=== PATIENT | male | born 1975 | race Caucasian/White ===

== ENCOUNTER 2020-03-23 09:34 | Outpatient (CLI) | payer BC, SELFPAY ==
--- NOTE | 2020-03-23 11:30 | NEURO_ITS ---
Patient Number: [id number] Impression: # Complains of numbness of hands. # Bilateral sensory more than motor Carpal Tunnel Syndrome. # No ulnar neuropathy. # Normal needle/EMG exam. # Clinical correlation recommended. Nerve Conduction Studies Anti Sensory Summary Table Stim Site NR Peak (ms) P-T Amp (?V) Site1 Site2 Delta-P (ms) Dist (cm) Bo (m/s) Left Median Anti Sensory (2-3nd Digit) Wrist 3.6 49.1 Wrist 2-3nd Digit 3.6 14.0 39 Wrist 3.7 36.3 Wrist 2-3nd Digit 3.6 14.0 39 Right Median Anti Sensory (2-3nd Digit) Wrist 4.4 47.1 Wrist 2-3nd Digit 4.4 14.0 32 Wrist 5.0 1.0 Wrist 2-3nd Digit 4.4 14.0 32 Left Radial Anti Sensory (Base 1st Digit) Wrist 1.6 32.2 Wrist Base 1st Digit 1.6 0.0 Right Radial Anti Sensory (Base 1st Digit) Wrist 1.8 25.2 Wrist Base 1st Digit 1.8 0.0 Left Ulnar Anti Sensory (5th Digit) Wrist 2.7 29.8 Wrist 5th Digit 2.7 14.0 52 Right Ulnar Anti Sensory (5th Digit) Wrist 2.4 38.9 Wrist 5th Digit 2.4 14.0 58 Motor Summary Table Stim Site NR Onset (ms) O-P Amp (mV) Site1 Site2 Delta-0 (ms) Dist (cm) Bo (m/s) Left Median Motor (Abd Poll Brev) Wrist 3.6 3.9 Elbow Wrist 5.5 30.0 55 Elbow 9.1 3.7 Right Median Motor (Abd Poll Brev) Wrist 3.7 1.3 Elbow Wrist 5.1 30.0 59 Elbow 8.8 1.5 Left Ulnar Motor (Abd Dig Minimi) Wrist 2.8 6.7 A Elbow Wrist 5.2 31.0 60 A Elbow 8.0 6.1 Right Ulnar Motor (Abd Dig Minimi) Wrist 2.5 6.8 A Elbow Wrist 4.8 30.0 63 A Elbow 7.3 5.8 F Wave Studies NR F-Lat (ms) L-R F-Lat (ms) Left Median (Mrkrs) (Abd Poll Brev) 28.87 0.00 Right Median (Mrkrs) (Abd Poll Brev) 28.87 0.00 Left Ulnar (Mrkrs) (Abd Dig Min) 28.05 0.47 Right Ulnar (Mrkrs) (Abd Dig Min) 27.58 0.47 EMG Side Muscle Nerve Root Ins Act Fibs Amp Dur Recrt Comment Right 1stDorInt Ulnar C8-T1 Nml Nml Nml Nml Nml Right Ext Indicis Radial (Post Int) C7-8 Nml Nml Nml Nml Nml Right Ext Digitorum Radial (Post Int) C7-8 Nml Nml Nml Nml Nml Right BrachioRad Radial C5-6 Nml Nml Nml Nml Nml Right PronatorTeres Median C6-7 Nml Nml Nml Nml Nml Right Abd Poll Brev Median C8-T1 Nml Nml Nml Nml Nml Left 1stDorInt Ulnar C8-T1 Nml Nml Nml Nml Nml Left Ext Indicis Radial (Post Int) C7-8 Nml Nml Nml Nml Nml Left Ext Digitorum Radial (Post Int) C7-8 Nml Nml Nml Nml Nml Left BrachioRad Radial C5-6 Nml Nml Nml Nml Nml Left PronatorTeres Median C6-7 Nml Nml Nml Nml Nml Left Abd Poll Brev Median C8-T1 Nml Nml Nml Nml Nml Right ABD Dig Min Ulnar C8-T1 Nml Nml Nml Nml Nml Left ABD Dig Min Ulnar C8-T1 Nml Nml Nml Nml Nml MTDD
== END 2020-03-23 09:35 | disposition home or self-care (01) ==
LOC: ANHNEURO 09:36
PROVIDERS: PCP Internal Medicine; Visit Provider Orthopaedic Surgery
DX: G56.03 Carpal tunnel syndrome, bilateral upper limbs (principal)
CPT/HCPCS: 95886; 95911

== ENCOUNTER 2021-01-19 07:59 | Outpatient (CLI) | payer BC, SELFPAY ==
--- NOTE | ~2021-01-19 | CT_ITS ---
EXAMINATION: CT IAC/mastoids BI wo con EXAM DATE: 01/19/2021 08:31 INDICATION: Bilateral eustachian tube dysfunction. Hearing loss entire life. Ear surgeries 15 years a go. Scar tissue. TECHNIQUE: Spiral CT of the internal auditory canals was performed without contrast. Axial and franck nal images were reviewed. The dose-length product (DLP) for this examination was 256.75 mGy-cm. The exposure was tailored according to patient size, and iterative reconstruction (ASIR) was used as add itional dose reduction technique. There is no prior study for comparison. FINDINGS: Internal auditory canals are symmetric. The expected courses of the eustachian tubes symmet jerry, no evidence of mass or other abnormality in the region. Please note these are typically collapse d at imaging and not specifically evaluated for patency. RIGHT side: The middle ear is well aerated. The mastoid air cells are well aerated. The seventh aircraft line assembler nial nerve has a normal course. The scutum is intact. The ossicles are normal in appearance. Small portions of the tegmen tympani have wall that is imperceptible. The cochlea and semicircular canals are normal in appearance. Internal auditory canal is normal in appearance and symmetric compared to contralateral side. LEFT side: The middle ear is well aerated. The mastoid air cells are well aerated. The seventh cran ial nerve has a normal course. The scutum is intact. The ossicles are normal in appearance. Small portions of the tegmen tympani have wall that is imperceptible. The cochlea and semicircular canals are normal in appearance. Internal auditory canal is normal in appearance and symmetric compared to contralateral side. IMPRESSION: Unremarkable CT IAC exam. Reviewed, dictated and finalized at location B. IMPRESSION: Unremarkable CT IAC exam.
== END 2021-01-19 08:00 | disposition home or self-care (01) ==
PROVIDERS: PCP Internal Medicine; Visit Provider Otolaryngology
DX: H69.82 Other specified disorders of Eustachian tube, left ear (principal)
CPT/HCPCS: 70480

== ENCOUNTER 2022-06-07 08:21 | Outpatient (CLI) | payer BC, SELFPAY ==
--- NOTE | ~2022-06-07 | CT_ITS ---
EXAMINATION: CT abdomen w con INDICATION: Right flank pain TECHNIQUE: Computed tomographic images of the abdomen were obtained after the administration of 100 c c of Omnipaque 350 intravenous contrast. The dose-length product (DLP) was 814.56 mGy-cm. Automated e xposure control and iterative reconstruction technique were employed. COMPARISON: None available FINDINGS: The lung bases are clear. The heart size is normal. The liver, spleen, pancreas, and right adrenal gland are normal. A 5 mm mass of the left adrenal gland is too small to characterize but like ly reflects an adenoma. There is a 5 mm stone in the distal common bile duct. The enlarged common lee e duct measures up to 11 mm. There is mild mucosal enhancement of the common bile duct. Stones are pr esent in the nondistended gallbladder. There is mild wall thickening of the gallbladder. There are no pathologically enlarged abdominal lymph nodes. The left kidney is unremarkable. There is a 1.[address] of the right kidney. There is no free intraperitoneal gas or evidence of bowel obstruction. IMPRESSION: 1. Choledocholithiasis with dilated common bile duct. Mild mucosal enhancement of the common bile reina t could reflect cholangitis. Wall thickening of the gallbladder is likely due to choledocholithiasis. These findings were discussed with Dr. Nura Nicolas MD at 1055 hours on 06/07/2022. Reviewed, dictated and finalized at location A. IMPRESSION: 1. Choledocholithiasis with dilated common bile duct. Mild mucosal enhancement of the common bile duct could reflect cholangitis. Wall thickening of the gallb ladder is likely due to choledocholithiasis. These findings were discussed with Dr. Nura Nicolas MD at 1055 hours on 06/07/2022.
== END 2022-06-07 08:22 | disposition home or self-care (01) ==
PROVIDERS: PCP Internal Medicine; Visit Provider Internal Medicine
DX: R10.9 Unspecified abdominal pain (principal); K80.20 Calculus of gallbladder without cholecystitis without obstruction
CPT/HCPCS: 74160; Q9967

== ENCOUNTER 2022-06-08 13:02 | Observation (INO) | payer BC, SELFPAY ==
--- NOTE | ~2022-06-08 | XR_ITS ---
EXAMINATION: XR ERCP DATE: 06/09/2022 13:02 INDICATION: Choledocholithiasis. TECHNIQUE: 2 spot fluoroscopic images of the right upper quadrant were obtained during endoscopic ret rograde cholangiopancreatography (ERCP). Fluoroscopy exposure time was 173 seconds. COMPARISON: CT abdomen 06/07/2022 FINDINGS: The endoscope is in the second portion of the duodenum. There is opacification of the commo n duct with a stone identified. IMPRESSION: 1. Choledocholithiasis. Please refer to the ERCP procedure note for additional details. Reviewed, dictated and finalized at location A.
[2022-06-08 13:05] VITALS: BP 136/84; PULSE 91; RESP 20; TEMP 37; O2SAT 98
--- NOTE | 2022-06-08 14:08 | ED.ABDPAIN ---
HPI - Abdominal Pain General Chief Complaint: Abdominal Pain Stated Complaint: abd pain Time Seen by Provider: 06/08/22 13:29 History of Present Illness HPI narrative: 46-year-old male presents emergency room for evaluation of abnormal lab work and right upper quadrant abdominal pain. Patient states he was seen at his primary care physician's office yesterday and had lab work and a CT scan of his abdomen. CT scan shows choledocholithiasis. Lab work showed elevated lipase and bilirubin levels. Patient was encouraged by his PCP to come here for further evaluation and surgical consultation Related Data Allergies Allergy/AdvReac Type Severity Reaction Status Date / Time No Known Allergies Allergy Verified 06/08/22 14:19 Review of Systems Review of Systems: CONSTITUTIONAL: Denies fever, chills, or sweats. EYES: Denies visual changes, redness, or discharge. ENT: Denies rhinorrhea, congestion, sore throat, or otalgia. CARDIOVASCULAR: Denies chest pain, palpitations, or edema. RESPIRATORY: Denies cough or dyspnea. GASTROINTESTINAL: Reports right upper quadrant pain GENITOURINARY: Denies dysuria or hematuria. SKIN: Denies rash or itching. MUSCULOSKELETAL: Denies back pain, joint pain, or myalgia. NEUROLOGIC: Denies headache, numbness, dizziness, or weakness. PSYCHIATRIC: Denies anxiety or depression. Exam Narrative: GENERAL: Well-appearing, well-nourished, no physical limitations, and in no acute distress. HEAD: Normocephalic, atraumatic. EYES: Conjunctivae jaundiced, PERRLA and EOMI. CHEST: Clear to auscultation. No respiratory distress. No wheezes rales or rhonchi. No tenderness. HEART: Regular rate and rhythm. No murmur heard. Normal peripheral pulses. ABDOMEN: Soft, nontender, nondistended, normal active bowel sounds. EXTREMITIES: Normal range of motion. No edema. No clubbing or cyanosis SKIN: Warm, dry, no rash. Jaundiced NEURO: No focal deficits. Alert and oriented x3. MAEW. CN's II-XI intact bilaterally, normal gait PSYCH: Cooperative. Normal mood and affect. Course Vital Signs Vital signs: Vital Signs Temperature 37.0 C 06/08/22 13:05 Pulse Rate 91 06/08/22 13:05 Respiratory Rate 20 06/08/22 13:05 Blood Pressure 136/84 06/08/22 13:05 Pulse Oximetry 98 06/08/22 13:05 Oxygen Delivery Room Air 06/08/22 13:05 Temperature 37.0 C 06/08/22 13:05 Pulse Rate 91 06/08/22 13:05 Respiratory Rate 20 06/08/22 13:05 Blood Pressure 136/84 06/08/22 13:05 Pulse Oximetry 98 06/08/22 13:05 Oxygen Delivery Room Air 06/08/22 13:05 MDM - Abdominal Pain Lab Data Result diagrams: 06/08/22 14:15 06/08/22 14:15 Labs: Lab Results 06/08/22 06/08/22 06/08/22 Range/Units 14:15 14:15 14:15 WBC 9.0 (4.5-10.0) K/mm3 RBC 5.66 (4.6-6.20) M/mm3 Hgb 16.1 (14.0-18.0) g/dL Hct 47.8 (42.0-52.0) % MCV 84.5 (80-100) fl MCH 28.4 (26-34) pg MCHC 33.7 (32-36) g/dl RDW 15.1 H (11.5-14.5) % Plt Count 161 (150-375) k/mm3 MPV 9.3 (7.4-10.4) fl Immature Gran % (Auto) 0.4 (0-0.5) % Neut % (Auto) 79.2 H (45.5-73.1) % Lymph % (Auto) 10.6 L (18.3-44.2) % [place] % (Auto) 8.8 H (2.6-8.5) % Eos % (Auto) 0.2 (0-4.4) % Baso % (Auto) 0.8 (0.2-1.2) % Lymph # (Auto) 0.96 (0.9-3.2) K/mm3 [place] # (Auto) 0.8 H (0.1-0.6) K/mm3 Eos # (Auto) 0.0 (0-0.3) K/mm3 Baso # (Auto) 0.1 (0.0-0.1) K/mm3 Abs Immat Gran (auto) 0.04 H (0.00-0.031) K/mm3 Absolute Neuts (auto) 7.2 H (1.3-6.7) K/mm3 Absolute Nucleated RBC 0.0 (0.0-0.012) K/mm3 Nucleated RBC % 0.0 (0.0-0.2) % PT 13.3 (11.1-14.7) Seconds INR 1.1 APTT 28.8 (22.3-36.8) SECONDS Sodium 137 (137-145) mmol/L Potassium 4.2 (3.4-5.0) mmol/L Chloride 101 (98-107) mmol/L Carbon Dioxide 21 L (22-30) mmol/L Anion Gap 15 (8-16) mmol/L BUN 23 H (9-20) mg/dL Creatinine 1.30 (0.7-1.3) mg/
[2022-06-08 14:20] LABS: Basophils Absolute Auto 0.1 K/mm3 (0.0-0.1); Basophils Percent Auto 0.8 % (0.2-1.2); Eosinophils Percent Auto 0.2 % (0-4.4); Hematocrit 47.8 % (42.0-52.0); Hemoglobin 16.1 g/dL (14.0-18.0); Immature Granulocyte Absolute 0.04 K/mm3 (0.00-0.031); Immature Granulocyte Percent A 0.4 % (0-0.5); Lymphocytes Absolute Auto 0.96 K/mm3 (0.9-3.2); Lymphocytes Percent Auto 10.6 % (18.3-44.2); Mean Corpuscular HGB Conc 33.7 g/dl (32-36); Mean Corpuscular Hemoglobin 28.4 pg (26-34); Mean Corpuscular Volume 84.5 fl (80-100); Mean Platelet Volume 9.3 fl (7.4-10.4); Monocytes Absolute Auto 0.8 K/mm3 (0.1-0.6); Monocytes Percent Auto 8.8 % (2.6-8.5); Neutrophils Absolute Auto 7.2 K/mm3 (1.3-6.7); Neutrophils Percent Auto 79.2 % (45.5-73.1); Platelet Count Result 161 k/mm3 (150-375); Red Blood Count 5.66 M/mm3 (4.6-6.20); Red Cell Distribution Width 15.1 % (11.5-14.5)
[2022-06-08] MEDS: LACTATED RINGERS 1,000 ML 150 ML IV CONT (14:28)
[2022-06-08 14:31] LABS: Alanine Aminotransferase 231 U/L (6-50); Albumin Level 4.4 g/dL (3.5-5.1); Alkaline Phosphatase 208 U/L (38-126); Anion Gap 15 mmol/L (8-16); Aspartate Amino Transferase 100 U/L (17-59); Bilirubin,Total 11.5 mg/dL (0.2-1.3); Blood Urea Nitrogen 23 mg/dL (9-20); Calcium 8.4 mg/dL (8.4-10.2); Carbon Dioxide 21 mmol/L (22-30); Chloride 101 mmol/L (98-107); Estimated CRCL calculation 72 ml/min; Estimated Glomerular Filt Rate 60; Glucose 107 mg/dL (65-110); Lipase 188 U/L (23-300); Potassium 4.2 mmol/L (3.4-5.0); Sodium 137 mmol/L (137-145)
[2022-06-08 14:35] LABS: INR 1.1; Prothrombin Time 13.3 Seconds (11.1-14.7)
[2022-06-08 14:36] LABS: Partial Thromboplastin Time 28.8 SECONDS (22.3-36.8)
[2022-06-08 15:09] LABS: Add Urine Microscopic? YES; Appearance Urine Cloudy (Clear); Bilirubin Urine 1+ (Negative); Blood Urine Negative (Negative); Color Urine Amber (Yellow); Glucose Urine UA Negative (Negative); Ketones Urine Negative (Negative); Leukocyte Esterase Ur Negative LEU/UL (Negative); Mucus Urine Rare /lpf; Nitrate Urine Negative (Negative); Protein Urine 1+ mg/dL (Negative); Specific Grav Ur 1.025 (1.001-1.035)
--- NOTE | 2022-06-08 16:01 | WPDGICN ---
Assessment and Plan Assessment and plan (1) Cholelithiasis: Code(s): K80.20 - Calculus of gallbladder without cholecystitis without obstruction Status: Acute Assessment and Plan: Patient with symptomatic cholelithiasis. Some of his symptoms likely related to common bile duct gallstone. CT scan performed at [facility] yesterday confirms the common bile duct gallstone. He also has gallstones within the gallbladder. Plan for ERCP in the morning. Cover with broad-spectrum antibiotics. Surgical follow-up for a ventral cholecystectomy advised. (2) Choledocholithiasis: Code(s): K80.50 - Calculus of bile duct without cholangitis or cholecystitis without obstruction Status: Acute Assessment and Plan: CT scan suggests common bile duct gallstone. Plan for ERCP in the morning. Surgical follow-up is advised for a ventral cholecystectomy. GI Consult Note Consult date/time: 06/08/22 16:01 Reason for consult: elevated LFTs, right upper quadrant pain HPI: Nicohlas Amaro is a 46 year old male I am asked to see at the request of the emergency room. Patient reports he has had right upper quadrant abdominal pain for the last 3 weeks. He has been followed by his primary care doctor. Out patient LFTs were obtained and found to have significantly elevated transaminases and bilirubin. Patient underwent a CT scan yesterday which suggested gallstones but also a common bile duct gallstone. For this reason he was sent to the emergency room. Patient was admitted the hospital. Patient denies any out now fever but the states he she be he felt warm last evening when she has time good night. Patient has had a relatively poor appetite. Denies any significant weight loss. Past medical history is significant for thyroid cancer status post thyroidectomy is currently on thyroid replacement. He also has a history of syncope in the past a pacemaker was placed many years ago. He states the syncopal episode stopped after removal of the thyroid mass. Pacemaker is present but has not been used. Review of Systems Review of Systems: review of systems noncontributory. Meds Home Medications and Allergies Allergies Allergy/AdvReac Type Severity Reaction Status Date / Time No Known Allergies Allergy Verified 06/08/22 14:19 Vital Signs Vital Signs - 24 hr 06/08/22 13:05 Temperature 98.6 F Pulse Rate 91 Respiratory Rate 20 Blood Pressure 136/84 Pulse Oximetry 98 Oxygen Delivery Room Air Exam Narrative: Physical exam reveals patient to be alert. Vital signs stable. HEENT exam Reveals some scleral icterus. Lungs are clear to auscultation and percussion. Heart is without murmur or extra sounds. Abdominal exam bowel sounds are present soft nontender with no organomegaly. Digital rectal exam unremarkable. Results Labs CBC & Chem 7: 06/08/22 14:15 06/08/22 14:15 Labs: Short CBC 06/08/22 Range/Units 14:15 WBC 9.0 (4.5-10.0) K/mm3 Hgb 16.1 (14.0-18.0) g/dL Hct 47.8 (42.0-52.0) % Plt Count 161 (150-375) k/mm3 BMP 06/08/22 14:15 Sodium 137 Potassium 4.2 Chloride 101 Carbon Dioxide 21 L BUN 23 H Creatinine 1.30 Glucose 107 Calcium 8.4 Liver Function 06/08/22 Range/Units 14:15 Total Bilirubin 11.5 H (0.2-1.3) mg/dL AST 100 H (17-59) U/L ALT 231 H (6-50) U/L Alkaline Phosphatase 208 H (38-126) U/L Albumin 4.4 (3.5-5.1) g/dL Urine 06/08/22 Range/Units 14:56 Urine Color [place] (Yellow) Urine Appearance Cloudy H (Clear) Urine pH 5.0 (5.0-9.0) Ur Specific [place] 1.025 (1.001-1.035) Urine Protein 1+ H (Negative) mg/dL Urine Glucose (UA) Negative (Negative) mg/dL [facility] Consult Billing Inpatient Consult [id number] Consult Moderate
[2022-06-08 16:30] LABS: Bilirubin Direct 5.1 mg/dL (0-0.3); Bilirubin Indirect 1.9 mg/dL (0-1.1); Bilirubin,Total 10.6 mg/dL (0.2-1.3)
[2022-06-08 16:51] VITALS: BP 137/78; PULSE 72; RESP 20; O2SAT 97
--- NOTE | 2022-06-08 16:53 | PM.IMHP ---
H&P: HPI History of Present Illness Date/Time: 06/08/22 16:53 Chief Complaint: Abdominal pain Narrative: this is a 46 year year old male patient who was supposed to have a right carpal tunnel today and they noticed that he was jaundiced. The patient came to the emergency room to be worked up for right upper quadrant pain and the jaundice. The patient stated that he was seen in his primary care office yesterday and his lab work and CT of the abdomen were performed. The CT scan shows choledocholithiasis.? GI has been asked to consult. Patient's total bilirubin is 10.6 today it was 11.5 earlier today. Direct bilirubin 5.1. Indirect bilirubin 1.9. AST is 100, ALT is 231, and alkaline phosphatase is 208. GI has already seen the patient and made a notation. The patient is being admitted to observation status on the date of service of 06/08/2022. Review of Systems Review of Systems: See HPI All systems reviewed & are unremarkable except as noted in HPI and below Constitutional: Constitutional: Reports as per HPI and Reports no additional constitutional complaints Eyes: Eyes: Reports as per HPI and Reports no additional eye complaints ENT: Reports system reviewed and no additional complaints, except as documented and Reports Normal hearing present Cardiovascular: Cardiovascular: Reports no additional cardiovascular complaints Respiratory: Respiratory: Reports no additional respiratory complaints and Reports no additional respiratory complaints Gastrointestinal: Gastrointestinal: Reports as per HPI and Reports no additional gastrointestinal complaints Musculoskeletal: Musculoskeletal: Reports no additional musculoskeletal complaints Integumentary/Breasts: Skin/Breast: Reports system reviewed and no additional complaints, except as docu and Reports as per HPI Neurologic: Reports system reviewed and no additional complaints, except as documented, Reports as per HPI and Reports Normal hearing present Psychiatric: Psychiatric: Reports no additional psychiatric complaints and Reports as per HPI Endocrine: Endocrine: Reports no additional endocrine complaints Hematologic/Lymphatic: Hematologic/Lymphatic: Reports no additional hematologic/lymphatic complaints Allergic/Immunologic: Allergic/Immunologic: Reports no additional allergic/immunologic complaints [facility] Past Medical History Medical History Hypothyroidism Pacemaker Sick sinus syndrome Syncope Thyroid cancer Surgical History Surgical History H/O thyroidectomy History of carpal tunnel release S/P cubital tunnel release S/P tonsillectomy and adenoidectomy Family History Family History Mother Unknown family medical history Social History Social History (Updated 06/08/22 @ 19:03 by Raquel Child NP) Social History: the patient is and has 3 children. 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 The patient states that he is a nonsmoker. He rarely drinks. He denies any marijuana or other illicit drugs. 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 Code status full code. Smoking status: Never smoker Meds Home Medications and Allergies Home Medications Medication Instructions Recorded Confirmed Type levothyroxine 200 mcg tablet 200 mcg PO DAILY 06/08/22 06/08/22 History (Euthyrox) levothyroxine 50 mcg tablet 50 mcg PO DAILY 06/08/22 06/08/22 History Allergies Allergy/AdvReac Type Severity Reaction Status Date / Time No Known Allergies Allergy Verified 06/08/22 14:19 Vital Signs Vital Signs - 24 hr 06/08/22 13:05 06/08/22 16:51 Temperature 37.0 C Pulse Rate 91 72 Respiratory Rate 20 20 Blood Pressure 136/84 137/78 Pulse Oximetry 98 97 Oxygen Delivery Room Air Exam Const: General: cooperative, healthy appearing, comfo
[2022-06-08 19:15] VITALS: BP 137/77; PULSE 80; RESP 18; TEMP 36.6; O2SAT 97
[2022-06-08 20:00] VITALS: BP 126/79; PULSE 72; RESP 16; TEMP 36.7; O2SAT 97
[2022-06-08 20:13] VITALS: BMI 34.7
[2022-06-08] MEDS: PIPERACILLIN/TAZOBACTAM SOD 4.5 GM in SODIUM CHLORIDE 0.9% IV 100 ML 200 ML IVPB (21:29)
[2022-06-08 22:00] VITALS: BP 128/72; PULSE 70; RESP 16; TEMP 36.7; O2SAT 98
[2022-06-09] VITALS (15 sets, daily range): BP systolic 102–146; BP diastolic 70–91; PULSE 62–79; RESP 14–20; TEMP 35.9–36.8; O2SAT 95–100
[2022-06-09] MEDS: PIPERACILLIN/TAZOBACTAM SOD 4.5 GM in SODIUM CHLORIDE 0.9% IV 100 ML 200 ML IVPB ×4 (03:05→20:50)
[2022-06-09 06:27] LABS: Basophils Absolute Auto 0.1 K/mm3 (0.0-0.1); Basophils Percent Auto 0.9 % (0.2-1.2); Eosinophils Percent Auto 0.6 % (0-4.4); Hematocrit 45.5 % (42.0-52.0); Immature Granulocyte Absolute 0.03 K/mm3 (0.00-0.031); Immature Granulocyte Percent A 0.5 % (0-0.5); Lymphocytes Absolute Auto 1.07 K/mm3 (0.9-3.2); Lymphocytes Percent Auto 16.1 % (18.3-44.2); Mean Corpuscular Volume 84.9 fl (80-100); Mean Platelet Volume 9.9 fl (7.4-10.4); Monocytes Absolute Auto 0.8 K/mm3 (0.1-0.6); Monocytes Percent Auto 12.5 % (2.6-8.5); Neutrophils Absolute Auto 4.6 K/mm3 (1.3-6.7); Neutrophils Percent Auto 69.4 % (45.5-73.1); Platelet Count Result 150 k/mm3 (150-375); Red Blood Count 5.36 M/mm3 (4.6-6.20); Red Cell Distribution Width 14.9 % (11.5-14.5); White Blood Count 6.6 K/mm3 (4.5-10.0)
[2022-06-09 06:34] LABS: Lactic Acid Reflex 0.9 mmol/L (0.7-2.0)
[2022-06-09 06:37] LABS: Alanine Aminotransferase 196 U/L (6-50); Alkaline Phosphatase 190 U/L (38-126); Anion Gap 15 mmol/L (8-16); Aspartate Amino Transferase 95 U/L (17-59); Bilirubin,Total 8.6 mg/dL (0.2-1.3); Blood Urea Nitrogen 20 mg/dL (9-20); Calcium 8.1 mg/dL (8.4-10.2); Carbon Dioxide 23 mmol/L (22-30); Chloride 101 mmol/L (98-107); Estimated CRCL calculation 75 ml/min; Estimated Glomerular Filt Rate 60; Glucose 88 mg/dL (65-110); Lipase 121 U/L (23-300); Magnesium 1.9 mg/dL (1.6-2.3); Sodium 139 mmol/L (137-145)
[2022-06-09] MEDS: LEVOTHYROXINE SODIUM INJ 100 MCG/5 ML VIAL 125 MCG IV PUSH (06:56)
[2022-06-09 07:24] LABS: Thyroid Stimulating Hormone Reflex < 0.015 uIU/mL (0.465-4.68)
[2022-06-09 07:54] LABS: Free T4 Free Thyroxine Reflex 1.96 ng/dL (0.78-2.19)
--- NOTE | 2022-06-09 08:53 | PM.IMPN ---
Progress Note: A&P Assessment and Plan (1) Choledocholithiasis: Code(s): K80.50 - Calculus of bile duct without cholangitis or cholecystitis without obstruction Status: Acute Assessment and Plan: Afebrile on zosyn with no evidence of ascending cholangitis. Clinically stable. -Continue zosyn -Planned for ERCP today (2) Hypothyroidism: Code(s): E03.9 - Hypothyroidism, unspecified Status: Chronic Assessment and Plan: Hx of thyroid cancer s/p resection 2009. On levothyroxine 250 mcg at home. -Ordered oral levothyroxine for morning after ERCP Subjective Date/time seen: 06/09/22 08:53 Patient denies abdominal pain at this time. Says he had abdominal pain and a fever before coming to the hospital. is at bedside. Review of Systems Gastrointestinal: Gastrointestinal: Reports abdominal pain Exam Narrative: GENERAL: NAD, cooperative HEENT: Normocephalic, atraumatic, scleral icterus, nares clear, oropharynx moist and clear, dentition normal NECK: Supple CV: Normal S1, S2, RRR, No MRG RESP: CTAB, Normal work of breathing. Abdomen: Soft, non-tender, non-distende EXTREMITIES: Warm and well perfused, no clubbing, cyanosis, or edema. +2 Distal pulses bilaterally. SKIN: warm, dry and intact. Jaundice. NEURO: CN 2-12 grossly intact Objective Data Vital Signs Vital Signs: Vital Signs - 24 hr 06/08/22 13:05 06/08/22 16:51 06/08/22 19:15 Temperature 37.0 C 36.6 C Pulse Rate 91 72 80 Respiratory Rate 20 20 18 Blood Pressure 136/84 137/78 137/77 Pulse Oximetry 98 97 97 Oxygen Delivery Room Air 06/08/22 20:00 06/08/22 22:00 06/09/22 00:00 Temperature 36.7 C 36.7 C 36.7 C Pulse Rate 72 70 72 Respiratory Rate 16 16 16 Blood Pressure 126/79 128/72 122/70 Pulse Oximetry 97 98 98 Oxygen Delivery 06/09/22 04:00 06/09/22 05:55 Temperature 36.7 C 36.7 C Pulse Rate 68 68 Respiratory Rate 16 16 Blood Pressure 124/70 124/70 Pulse Oximetry 98 98 Oxygen Delivery Intake/Output Intake/Output: Intake & Output 06/06/22 06/07/22 06/08/22 06/09/22 23:59 23:59 23:59 23:59 Intake Total 100 100 Balance 100 100 Meds/Results Medications: Active Medications Generic Name Dose Route Start Last Admin Trade Name Freq PRN Reason Stop Dose Admin Piperacillin Sod/Tazobactam 100 mls @ 200 mls/hr 06/08/22 21:00 06/09/22 03:35 Sod 4.5 gm/ Sodium Chloride IVPB Infused Q6H NOELLE Infusion Levothyroxine Sodium 125 mcg 06/09/22 06:30 06/09/22 06:56 Levothyroxine Sodium Inj 100 Mcg/5 Ml Vial IV PUSH 125 mcg DAILY@0630 [facility] Administration Morphine Sulfate 4 mg 06/08/22 15:46 Morphine Sulfate (*Crx) 4 Mg/Ml Inj IV PUSH Q2H PRN Pain Rated 7-10 Ondansetron HCl 4 mg 06/08/22 15:46 Ondansetron Inj 4 Mg/2 Ml Vial IV PUSH Q4H PRN Nausea Labs Labs: Laboratory Results - last 24 hr 06/08/22 06/08/22 06/08/22 14:15 14:15 14:15 WBC 9.0 RBC 5.66 Hgb 16.1 Hct 47.8 MCV 84.5 MCH 28.4 MCHC 33.7 RDW 15.1 H Plt Count 161 MPV 9.3 Immature Gran % (Auto) 0.4 Neut % (Auto) 79.2 H Lymph % (Auto) 10.6 L [place] % (Auto) 8.8 H Eos % (Auto) 0.2 Baso % (Auto) 0.8 Lymph # (Auto) 0.96 [place] # (Auto) 0.8 H Eos # (Auto) 0.0 Baso # (Auto) 0.1 Abs Immat Gran (auto) 0.04 H Absolute Neuts (auto) 7.2 H Absolute Nucleated RBC 0.0 Nucleated RBC % 0.0 PT 13.3 INR 1.1 APTT 28.8 Sodium 137 Potassium 4.2 Chloride 101 Carbon Dioxide 21 L Anion Gap 15 BUN 23 H Creatinine 1.30 Estim Creat Clear Calc 72 Estimated GFR 60 Glucose 107 Lactic Acid Calcium 8.4 Magnesium Total Bilirubin 11.5 H Direct Bilirubin Indirect Bilirubin AST 100 H ALT 231 H Alkaline Phosphatase 208 H Total Protein 8.0 Albumin 4.4 Lipase 188 TSH (Reflex) Free T4 Urine Color Uri
[2022-06-09 09:21] LABS: Total Triiodothyronine (T3) 1.03 NG/ML (0.97-1.69)
[2022-06-09] MEDS: LACTATED RINGERS 1,000 ML 150 ML IV CONT (11:07)
--- NOTE | 2022-06-09 11:08 | WPDANESEPPF ---
Anes - Initial Pre Proc Eval Procedure: Operation Date: 06/09/22 13:15 Proposed Procedures p Endoscopic Retro Cholangiopancreatogram - Gildardo Thomas MD Date/Time: 06/09/22 11:08 Surgeon: Augusto Murphy MD Pre Op Diagnosis: choledocholithiasis Patient Data Age: 46 Gender: M Height: 1.73 m Weight: 103.5 kg Last Vital Signs Temp 96.8 F L 06/09/22 10:58 Pulse 62 06/09/22 10:58 Resp 20 06/09/22 10:58 BP 127/75 06/09/22 10:58 Pulse Ox 99 06/09/22 10:58 O2 Del Method Room Air 06/09/22 10:58 Allergies Allergy/AdvReac Type Severity Reaction Status Date / Time No Known Allergies Allergy Verified 06/08/22 14:19 Home Medications Medication Instructions Recorded Confirmed Type levothyroxine 200 mcg tablet 200 mcg PO DAILY 06/08/22 06/08/22 History (Euthyrox) levothyroxine 50 mcg tablet 50 mcg PO DAILY 06/08/22 06/08/22 History Laboratory Tests 06/08/22 06/08/22 06/08/22 14:15 14:15 14:15 WBC 9.0 K/mm3 K/mm3 (4.5-10.0) RBC 5.66 M/mm3 M/mm3 (4.6-6.20) Hgb 16.1 g/dL g/dL (14.0-18.0) Hct 47.8 % % (42.0-52.0) MCV 84.5 fl fl (80-100) MCH 28.4 pg pg (26-34) MCHC 33.7 g/dl g/dl (32-36) RDW 15.1 % H % (11.5-14.5) Plt Count 161 k/mm3 k/mm3 (150-375) MPV 9.3 fl fl (7.4-10.4) Immature Gran % (Auto) 0.4 % % (0-0.5) Neut % (Auto) 79.2 % H % (45.5-73.1) Lymph % (Auto) 10.6 % L % (18.3-44.2) [place] % (Auto) 8.8 % H % (2.6-8.5) Eos % (Auto) 0.2 % % (0-4.4) Baso % (Auto) 0.8 % % (0.2-1.2) Lymph # (Auto) 0.96 K/mm3 K/mm3 (0.9-3.2) [place] # (Auto) 0.8 K/mm3 H K/mm3 (0.1-0.6) Eos # (Auto) 0.0 K/mm3 K/mm3 (0-0.3) Baso # (Auto) 0.1 K/mm3 K/mm3 (0.0-0.1) Abs Immat Gran (auto) 0.04 K/mm3 H K/mm3 (0.00-0.031) Absolute Neuts (auto) 7.2 K/mm3 H K/mm3 (1.3-6.7) Absolute Nucleated RBC 0.0 K/mm3 K/mm3 (0.0-0.012) Nucleated RBC % 0.0 % % (0.0-0.2) PT 13.3 Seconds Seconds (11.1-14.7) INR 1.1 APTT 28.8 SECONDS SECONDS (22.3-36.8) Sodium 137 mmol/L mmol/L (137-145) Potassium 4.2 mmol/L mmol/L (3.4-5.0) Chloride 101 mmol/L mmol/L (98-107) Carbon Dioxide 21 mmol/L L mmol/L (22-30) Anion Gap 15 mmol/L mmol/L (8-16) BUN 23 mg/dL H mg/dL (9-20) Creatinine 1.30 mg/dL mg/dL (0.7-1.3) Estim Creat Clear Calc 72 ml/min ml/min Estimated GFR 60 (59 - ) Glucose 107 mg/dL mg/dL (65-110) Lactic Acid Calcium 8.4 mg/dL mg/dL (8.4-10.2) Magnesium Total Bilirubin 11.5 mg/dL H mg/dL (0.2-1.3) Direct Bilirubin Indirect Bilirubin AST 100 U/L H U/L (17-59) ALT 231 U/L H U/L (6-50) Alkaline Phosphatase 208 U/L H U/L (38-126) Total Protein 8.0 g/dL g/dL (6.3-8.2) Albumin 4.4 g/dL g/dL (3.5-5.1) Lipase 188 U/L U/L (23-300) TSH (Reflex) Free T4 Total T3 Urine Color Urine Appearance Urine pH Ur Specific [place] Urine Protein Urine Glucose (UA) Urine Ketones Ur Blood (Man) Urine Nitrate Urine Bilirubin Urine Urobilinogen Leukocyte Esterase Rfl Urine RBC Urine WBC Urine Mucus 06/08/22 06/08/22 06/09/22 14:56 16:17 05:55 WBC 6.6 K/mm3 K/mm3 (4.5-10.0) RBC 5.36 M/mm3 M/mm3 (4.6-6.20) Hgb 15.0 g/dL g/dL (14.0-18.0) Hct 45.5 % % (42.0-52.0) MCV 84.9 fl fl (80-100) MCH 28.0 p
--- NOTE | 2022-06-09 17:13 | PM.CNGS ---
Assessment and Plan Assessment and plan (1) Choledocholithiasis with chronic cholecystitis: Code(s): K80.44 - Calculus of bile duct with chronic cholecystitis without obstruction Status: Acute Assessment and Plan: obstructive jaundice improving and patient noted to have common bile duct stone on CT. To have ERCP today. I discussed the need for cholecystectomy with the patient. I explained that since today is Sunday we could not proceed with this until at least Sunday or Sunday. He would prefer to have the surgery done as an outpatient. That way he could go home until the time of the surgery. I went ahead and discussed the entire surgery including the recovery. And time off work with the patient. The procedure the risks the benefits have all been discussed. The patient's was present for the entire discussion as well. He wishes to proceed. Assuming he does well after his ERCP today, he can go home tomorrow from my perspective and we will schedule him for outpatient laparoscopic cholecystectomy in the next couple of weeks. (2) Carpal tunnel syndrome of right wrist: Code(s): G56.01 - Carpal tunnel syndrome, right upper limb Status: Acute Assessment and Plan: Patient had left carpal tunnel done couple of weeks ago and was due to have his right carpal tunnel released couple of days ago but this has been put on hold due to the present illness. (3) Hypothyroidism: Code(s): E03.9 - Hypothyroidism, unspecified Status: Chronic Assessment and Plan: Status post thyroidectomy for cancer. Takes thyroid supplement. History of Present Illness Consult details Consult date: 06/09/22 Reason for consult: gallstones Requesting physician: Raquel Child NP Narrative: Patient is a 46-year-old man who tells me that a couple of years ago he had some right upper quadrant abdominal pain that was a pretty severe nature. He went to the emergency room at that time and had evaluation. He was found to have gallstones but his symptoms resolved and the need for cholecystectomy was never really expressed. He did well until about 3 weeks ago when he developed recurrent right upper quadrant abdominal pain. This pain stuck around it was fairly severe but he continued to work. About 2 weeks ago he started noticing evidence of jaundice. He saw his primary care physician and his bilirubin was quite elevated. It continued to rise. He got a CT scan which showed gallstones and a stone in the distal common bile duct. He has been admitted yesterday and was seen in consultation by Dr. Thomas of Gastroenterology. ERCP is planned for today on per Dr. Thomas. Patient tells me that he is still having some mild right upper quadrant pain but really nothing significant. No where near as bad as it was when he came to the hospital or in the last 2 weeks. He is seen now in consultation regarding cholelithiasis with obstructive jaundice and common bile duct stone. Additionally of note, the patient has a history of thyroid cancer and underwent thyroidectomy. He has a permanent pacemaker which was placed for syncopal episodes prior to his thyroidectomy. Since the thyroidectomy, he has no longer had need of pacing and the pacemaker is present but is never used. Review of Systems Review of Systems: All systems reviewed & are unremarkable except as noted in HPI and below ( And those items noted below) Constitutional: Constitutional: Reports as per HPI, Denies chills, Denies fever(s), Denies poor appetite and Denies weakness Cardiovascular: Cardiovascular: Reports as per HPI, Denies chest pain, Denies diaphoresis, Denies dyspnea and Denies paroxysmal nocturnal dyspnea Respiratory: Respiratory: Denies chest congestion, Denies cough and Denies dyspnea Gastrointestinal: Gastrointestinal: Reports as per HPI, Reports abdominal pain and Denies vomiting Integumentary/Breasts: Skin/Breast: Denies lesions and Denies rash Endocr
[2022-06-10] MEDS: PIPERACILLIN/TAZOBACTAM SOD 4.5 GM in SODIUM CHLORIDE 0.9% IV 100 ML 200 ML IVPB (03:01)
[2022-06-10 03:55] VITALS: BP 116/65; PULSE 59; RESP 20; TEMP 36.4; O2SAT 97
[2022-06-10 06:22] LABS: Basophils Percent Auto 0.3 % (0.2-1.2); Eosinophils Percent Auto 0.2 % (0-4.4); Hematocrit 46.5 % (42.0-52.0); Hemoglobin 15.3 g/dL (14.0-18.0); Immature Granulocyte Absolute 0.01 K/mm3 (0.00-0.031); Immature Granulocyte Percent A 0.2 % (0-0.5); Lymphocytes Absolute Auto 1.21 K/mm3 (0.9-3.2); Lymphocytes Percent Auto 19.3 % (18.3-44.2); Mean Corpuscular HGB Conc 32.9 g/dl (32-36); Mean Corpuscular Volume 85.2 fl (80-100); Mean Platelet Volume 9.8 fl (7.4-10.4); Monocytes Absolute Auto 0.7 K/mm3 (0.1-0.6); Monocytes Percent Auto 11.8 % (2.6-8.5); Neutrophils Absolute Auto 4.3 K/mm3 (1.3-6.7); Neutrophils Percent Auto 68.2 % (45.5-73.1); Platelet Count Result 177 k/mm3 (150-375); Red Blood Count 5.46 M/mm3 (4.6-6.20); Red Cell Distribution Width 14.8 % (11.5-14.5); White Blood Count 6.3 K/mm3 (4.5-10.0)
[2022-06-10] MEDS: LEVOTHYROXINE SODIUM 50 MCG TABLET PO (06:31)
[2022-06-10] MEDS: LEVOTHYROXINE SODIUM 100 MCG TABLET 200 MCG PO (06:31)
[2022-06-10 06:33] LABS: Alanine Aminotransferase 193 U/L (6-50); Alkaline Phosphatase 181 U/L (38-126); Anion Gap 16 mmol/L (8-16); Aspartate Amino Transferase 84 U/L (17-59); Blood Urea Nitrogen 17 mg/dL (9-20); Calcium 8.2 mg/dL (8.4-10.2); Carbon Dioxide 24 mmol/L (22-30); Chloride 102 mmol/L (98-107); Estimated CRCL calculation 88 ml/min; Estimated Glomerular Filt Rate > 60; Glucose 105 mg/dL (65-110); Potassium 4.3 mmol/L (3.4-5.0); Sodium 142 mmol/L (137-145)
[2022-06-10 08:00] VITALS: BP 123/78; PULSE 64; RESP 20; TEMP 36.1; O2SAT 98
--- NOTE | 2022-06-10 09:01 | PM.PNGS ---
Progress Note: A&P Assessment and Plan (1) Choledocholithiasis with chronic cholecystitis: Code(s): K80.44 - Calculus of bile duct with chronic cholecystitis without obstruction Status: Acute Assessment and Plan: Patient had a very successful ERCP yesterday. He is doing well this morning. Patient can be discharged today from surgical standpoint. Continue usual home medications. His laparoscopic cholecystectomy has been scheduled for June 22 at 1:30 p.m.. He we called at home and preoperative testing as needed will be ordered. I discussed the surgery with him again today. He had no questions. He should stay on a lower fat diet. He is doing well. No untoward consequences from his successful ERCP yesterday. Subjective Subjective Date/Time Seen: 06/10/22 09:01 Patient reports: no new complaints and feels better Review of Systems Review of Systems: All systems reviewed & are unremarkable except as noted in HPI and below (HPI and those items noted below) Constitutional: Constitutional: Denies chills, Denies fever(s), Denies headache(s) and Denies poor appetite Cardiovascular: Cardiovascular: Denies chest pain and Denies dyspnea Respiratory: Respiratory: Denies cough and Denies dyspnea Gastrointestinal: Gastrointestinal: Reports as per HPI, Denies abdominal pain, Denies GI cramping, Denies nausea and Denies vomiting Neurologic: Denies confusion and Denies headache(s) Exam Const: General: comfortable and no acute distress; No confusion Nutritional Appearance: overweight Orientation/consciousness: patient oriented x3 and No confusion GI: Inspection: normal to inspection, non-distended, no scars and no visible herniation GI Palp: Yes Soft to palpation, No Tenderness to palpation present (GI), No Guarding due to palpation present (GI) and No Rebound tenderness present Auscultation: normal bowel sounds Neuro: General: patient oriented x3, no focal motor deficits and No confusion Extrem: General: no calf tenderness and no edema Psych: Affect: normal affect Insight: Good insight present (Psych) Judgement: Good judgement present (Psych) Objective Data Vital Signs Vital Signs: Vital Signs - 24 hr 06/09/22 09:20 06/09/22 10:58 06/09/22 13:07 Temperature 36.0 C L 36.8 C Pulse Rate 62 79 Respiratory Rate 20 16 Blood Pressure 127/75 146/91 H Pulse Oximetry 99 100 Oxygen Delivery Room Air Room Air Simple Face Mask Oxygen Flow Rate 10 06/09/22 13:17 06/09/22 13:27 06/09/22 13:37 Temperature Pulse Rate 78 75 68 Respiratory Rate 20 17 18 Blood Pressure 139/86 135/88 118/82 Pulse Oximetry 100 100 96 Oxygen Delivery Simple Face Mask Room Air Room Air Oxygen Flow Rate 4 06/09/22 13:47 06/09/22 13:57 06/09/22 14:15 Temperature 36.2 C L Pulse Rate 78 67 70 Respiratory Rate 20 14 18 Blood Pressure 132/83 124/82 138/84 Pulse Oximetry 97 96 99 Oxygen Delivery Room Air Room Air Oxygen Flow Rate 06/09/22 16:00 06/09/22 20:00 06/09/22 20:00 Temperature 35.9 C L 36.1 C L Pulse Rate 67 70 Respiratory Rate 18 20 Blood Pressure 102/85 Pulse Oximetry 98 95 Oxygen Delivery Room Air Oxygen Flow Rate 06/09/22 23:56 06/10/22 03:55 Temperature 36.4 C L 36.4 C L Pulse Rate 66 59 L Respiratory Rate 20 20 Blood Pressure 122/77 116/65 Pulse Oximetry 99 97 Oxygen Delivery Oxygen Flow Rate Intake/Output Intake/Output: Intake & Output 06/07/22 06/08/22 06/09/22 06/10/22 23:59 23:59 23:59 23:59 Intake Total 100 2680 550 Balance 100 2680 550 Meds/Results Medications: Active Medications Generic Name Dose Route Start Last Admin Trade Name Freq PRN Reason Stop Dose Admin Piperacillin Sod/Tazobactam 100 mls @ 200 mls/hr 06/08/22 21:00 06/10/22 03:31 Sod 4.5 gm/ Sodium Chloride IVPB Infused Q6H NOELLE Infusion Levothyroxine Sodium 50 mcg 06/10/22 06:30 06/10/22 06:31 Levothyroxine Sodium 50 Mcg Tablet PO 50 mcg FRANCI
[2022-06-10] MEDS: PIPERACILLIN/TAZOBACTAM SOD 4.5 GM in SODIUM CHLORIDE 0.9% IV 100 ML IVPB (09:25)
--- NOTE | 2022-06-10 10:26 | WPDANESPN ---
Anes - Prog Note Post-Op Date/Time: 06/10/22 10:26 Cardiovascular status: normal Respiratory status: normal Airway patency: baseline Mental status: baseline Post-Op hydration status: normal Vital Signs: Last Vital Signs Temp 36.1 C L 06/10/22 08:00 Pulse 64 06/10/22 08:00 Resp 20 06/10/22 08:00 BP 123/78 06/10/22 08:00 Pulse Ox 98 06/10/22 08:00 O2 Del Method Room Air 06/09/22 20:00 O2 Flow Rate 4 06/09/22 13:17 Pain Score (VAS): 0 I/O: Intake & Output 06/09/22 06/10/22 06/10/22 23:59 07:59 15:59 Intake Total 1640 550 Balance 1640 550 Laboratory Tests 06/10/22 05:53 06/10/22 05:53 06/10/22 06/10/22 05:53 05:53 WBC 6.3 RBC 5.46 Hgb 15.3 Hct 46.5 MCV 85.2 MCH 28.0 MCHC 32.9 RDW 14.8 H Plt Count 177 MPV 9.8 Immature Gran % (Auto) 0.2 Neut % (Auto) 68.2 Lymph % (Auto) 19.3 [place] % (Auto) 11.8 H Eos % (Auto) 0.2 Baso % (Auto) 0.3 Lymph # (Auto) 1.21 [place] # (Auto) 0.7 H Eos # (Auto) 0.0 Baso # (Auto) 0.0 Abs Immat Gran (auto) 0.01 Absolute Neuts (auto) 4.3 Absolute Nucleated RBC 0.0 Nucleated RBC % 0.0 Sodium 142 Potassium 4.3 Chloride 102 Carbon Dioxide 24 Anion Gap 16 BUN 17 Creatinine 1.10 Estim Creat Clear Calc 88 Estimated GFR > 60 Glucose 105 Calcium 8.2 L Total Bilirubin 7.0 H AST 84 H ALT 193 H Alkaline Phosphatase 181 H Total Protein 7.0 Albumin 4.0 Post-procedural complaints: none Patient Feedback: Patient satisfied with anesthetic care.
[2022-06-10 12:00] VITALS: BP 113/88; PULSE 66; RESP 20; TEMP 36.1; O2SAT 98
--- NOTE | 2022-06-10 13:52 | PC.NURSE ---
This nurse contacted Dr. Thomas regarding pt's care and discharge via telephone call at [phone]. Dr. Thomas had no new orders and recommended the pt follow-up with surgery for scheduled appointment 06/22/2022.
--- NOTE | 2022-06-10 14:00 | PM.DS ---
DS: Admitting Diagnosis Discharge Date 06/10/2022 Admitting Diagnosis Choledocholithiasis DS: Discharge Diagnosis Discharge Diagnosis (1) Choledocholithiasis: Code(s): K80.50 - Calculus of bile duct without cholangitis or cholecystitis without obstruction Status: Acute Assessment and Plan: Outside facility CT abdomen pelvis showed choledocholithiasis. Had ERCP with removal of 10 mm stone with no evidence of ascending cholangitis and clinically patient has no evidence of cholecystitis. Patient is no longer jaundiced but does still have scleral icterus. LFTs are downtrending. -Order repeat LFTs for 1 week to be followed up by PCP -Discharge to home and already has follow up for outpatient cholecystectomy on 06/22 with General Surgery -Discontinue zosyn (2) Hypothyroidism: Code(s): E03.9 - Hypothyroidism, unspecified Status: Chronic Assessment and Plan: Hx of thyroid cancer s/p resection 2009. On levothyroxine 250 mcg at home. Continue. DS: Summary Hospital Course Reason for hospitalization: Choledocholithiasis Hospital Course: 46M with a past medical history of papillary thyroid carcinoma s/p resection and carpal tunnel who presented to the emergency department after being noted to have jaundice. Patient had outpatient CT that showed choledocholithiasis. LFTs were elevated. Zosyn was started. Gastroenterology was consulted and took the patient for ERCP the next morning. ERCP removed 10 mm stone and there was no evidence of ascending cholangitis. Zosyn was continued afer ERCP. Patient's abdominal pain improved and his jaundice resolved. LFTs were downtrending. Gastroenterology recommended having liver function test followed until normal outpatient. General Surgery was consulted and scheduled the patient for outpatient cholecystectomy. Patient given a low fat diet after ERCP and tolerated this well without nausea or abdominal pain. Patient remained afebrile and did not have any signs of cholecystitis. Zosyn was discontinued and patient was given strong ED warnings and advised to follow up with primary care physician after discharge to check liver function test. Time Spent with Patient Time attestation: Total time spent providing and/or coordinating discharge services: Exam Narrative: GENERAL: NAD, cooperative HEENT: Normocephalic, atraumatic, scleral icterus, nares clear, oropharynx moist and clear, dentition normal NECK: Supple CV: Normal S1, S2, RRR, No MRG RESP: CTAB, Normal work of breathing. Abdomen:non-distended EXTREMITIES: Warm and well perfused, no clubbing, cyanosis, or edema. +2 Distal pulses bilaterally. SKIN: warm, dry and intact. NEURO: CN 2-12 grossly intact DS: Data Data Completed and Pending Labs on day of discharge: Labs from last 24 hours 06/10/22 06/10/22 05:53 05:53 WBC 6.3 RBC 5.46 Hgb 15.3 Hct 46.5 MCV 85.2 MCH 28.0 MCHC 32.9 RDW 14.8 H Plt Count 177 MPV 9.8 Immature Gran % (Auto) 0.2 Neut % (Auto) 68.2 Lymph % (Auto) 19.3 [place] % (Auto) 11.8 H Eos % (Auto) 0.2 Baso % (Auto) 0.3 Lymph # (Auto) 1.21 [place] # (Auto) 0.7 H Eos # (Auto) 0.0 Baso # (Auto) 0.0 Abs Immat Gran (auto) 0.01 Absolute Neuts (auto) 4.3 Absolute Nucleated RBC 0.0 Nucleated RBC % 0.0 Sodium 142 Potassium 4.3 Chloride 102 Carbon Dioxide 24 Anion Gap 16 BUN 17 Creatinine 1.10 Estim Creat Clear Calc 88 Estimated GFR > 60 Glucose 105 Calcium 8.2 L Total Bilirubin 7.0 H AST 84 H ALT 193 H Alkaline Phosphatase 181 H Total Protein 7.0 Albumin 4.0 Procedures/Treatments: ERCP Imaging Radiologist's impression: ITS Impressions Endo Retro Cholangiopancreatogram 06/09/22 15:53 IMPRESSION: 1. Choledocholithiasis. Please refer to the ERCP procedure note for additional details. Discharge Plan Discharge Attending physician on discharge: Radha
--- NOTE | 2022-06-10 18:15 | PC.NURSE ---
Pt IV access was discontinued before discharge. IV catheter was intact.
== END 2022-06-10 15:10 | disposition home or self-care (01) ==
LOC: ANHED 16:39 → ANH3MEDSUR 20:10
PROVIDERS: Internal Medicine Gastroenterology; Nurse Practitioner; Admitting Provider Internal Medicine; Emergency Provider Nurse Practitioner Family; PCP Internal Medicine; Visit Provider Family Medicine
PROC: (CPT 43260; principal; 2022-06-09 13:15)
DX: K80.50 Calculus of bile duct without cholangitis or cholecystitis without obstruction (principal); E03.9 Hypothyroidism, unspecified; R94.5 Abnormal results of liver function studies; R93.3 Abnormal findings on diagnostic imaging of other parts of digestive tract; Z95.0 Presence of cardiac pacemaker; G56.01 Carpal tunnel syndrome, right upper limb; Z79.899 Other long term (current) drug therapy; Z85.850 Personal history of malignant neoplasm of thyroid
CPT/HCPCS: 43262; 43264; 36415; 74329; 80053; 81001; 82247; 82248; 83605; 83690; 83735; 84439; 84443; 84480; 85025; 85610; 85730; 96365; 96375; 99285; A9270; G0378; J1100; J2405; J2543; J2704; J7040; J7120

== ENCOUNTER 2022-06-21 09:25 | Outpatient (CLI) | payer BC, SELFPAY ==
--- NOTE | 2022-06-21 09:48 | ECG_ITS ---
Measurements Intervals [place] Rate: 71 P: 10 ID: 177 QRS: 7 QRSD: 146 T: 30 QT: 395 QTc: 432 Interpretive Statements SINUS RHYTHM LEFT BUNDLE BRANCH BLOCK BASELINE ARTIFACT- I, III, AVL, AVF ABNORMAL ECG COMPARED TO ECG 05/27/2019 07:33:07 SINUS RHYTHM NOW PRESENT LEFT BUNDLE-BRANCH BLOCK NOW PRESENT Electronically Signed On 06-21-2022 10:57:39 CDT by Dhiraj Moreno D.O.
[2022-06-21 10:43] LABS: Alanine Aminotransferase 239 U/L (6-50); Albumin Level 4.2 g/dL (3.5-5.1); Alkaline Phosphatase 153 U/L (38-126); Amylase 64 U/L (30-110); Aspartate Amino Transferase 115 U/L (17-59); Bilirubin,Total 2.5 mg/dL (0.2-1.3); Lipase 148 U/L (23-300)
== END 2022-06-21 09:26 | disposition home or self-care (01) ==
LOC: ANHSURGERY 09:29
PROVIDERS: PCP Internal Medicine; Visit Provider Surgery
DX: Z01.818 Encounter for other preprocedural examination (principal); Z95.0 Presence of cardiac pacemaker; K80.20 Calculus of gallbladder without cholecystitis without obstruction; R94.31 Abnormal electrocardiogram [ECG] [EKG]
CPT/HCPCS: 36415; 80076; 82150; 83690; 86850; 86900; 86901; 93005

== ENCOUNTER 2022-06-22 00:15 | Day surgery (SDC) | payer BC, SELFPAY ==
[2022-06-19 09:25] VITALS: BMI 33.0
--- NOTE | 2022-06-19 09:30 | PC.NURSE ---
Report to the Outpatient Waiting Room, entrance under the green pavilion located off [facility], at time 11:30 on date 06/22/22. Planned Procedure Time: 1:30. Time changes happen often and if your time is changed the preop area will call you the afternoon before. - You and your visitor will be asked to self-screen and do not enter if you have any COVID symptoms. - We encourage only one visitor and NO visitors under age 16 are allowed at this time. Your visitor will receive communication by the phone number that is given day of service. - The patient visitor is requested to social distance or may leave the building when not with patient due to restrictions. - A mask is OPTIONAL within the hospital. Patients may have clear liquids (water, carbonated beverages, clear teas, apple juice) until 3 hours prior to surgery (10:30) with a maximum of 20 ounces. - No food from midnight until time of surgery Take the following medications with a SIP of water the morning of surgery: THYROID MEDICINE Medications to discontinue per physician: N/A Date to take last dose: N/A Please no make-up, nail albanian, hairspray, perfume, deodorant, or body powder the day of surgery. No jewelry (including any body piercings) or valuables the day of surgery, leave them at home. Please take a shower or bath the night before, or the morning of, surgery with an antibacterial soap (HIBICLENS). Wear comfortable, loose fitting clothing. - Jewelry must be removed prior to entering the operating room. Rings and piercings that are not removed may be cut off. - The hospital will not accept responsibility for valuables. - Please leave all valuables, including medications, at home the day of surgery. If you are going home after surgery, a licensed recycling collections driver must drive you home. - NO public transportation without another adult. - We recommend that an adult stay with you for 24 hours following discharge. - We also recommend that you do not drive, make important decision, drink alcoholic beverages, or take any drugs that were not prescribed by your health care provider for at least 24 hours after your discharge time. Follow any additional instructions given to you from your surgeon. If you or anyone in your household have experienced Covid symptoms in the past week, please notify your surgeon or the nurse liaison at the phone number below for possible testing. Telephone instructions given to MANISH GARCIA and asked if any additional questions and then verbalized understanding. Patient advised to call surgeon office or pre surgery nurse liaison [phone] if any additional questions.
[2022-06-22] VITALS (9 sets, daily range): BP systolic 116–152; BP diastolic 74–83; PULSE 62–87; RESP 12–20; TEMP 36.5–36.8; O2SAT 90–100
--- NOTE | 2022-06-22 12:13 | WPDANESEPPF ---
Anes - Initial Pre Proc Eval Procedure: Operation Date: 06/22/22 13:30 Proposed Procedures p Laparoscopic Cholecystectomy - Lupillo Ward MD Date/Time: 06/22/22 12:13 Surgeon: Lupillo Ward MD Pre Op Diagnosis: Cholecystitis with Cholelithiasis Patient Data Age: 46 Gender: M Height: 1.73 m Weight: 98.5 kg Allergies Allergy/AdvReac Type Severity Reaction Status Date / Time No Known Allergies Allergy Mild Unverified 06/19/22 09:25 Home Medications Medication Instructions Recorded Confirmed Type levothyroxine 200 mcg tablet 200 mcg PO DAILY 06/08/22 06/19/22 History (Euthyrox) levothyroxine 50 mcg tablet 50 mcg PO DAILY 06/08/22 06/19/22 History pantoprazole 40 mg tablet,delayed 40 mg PO DAILY 06/19/22 06/19/22 History release Patient hx anesthesia problems: none Family hx anesthesia problems: none Results Review: All pre-operative results and documents have been reviewed as part of the pre-operative evaluation. [facility] Past Medical History Medical History Hypothyroidism Pacemaker Sick sinus syndrome Syncope Thyroid cancer Surgical History Surgical History H/O thyroidectomy History of carpal tunnel release S/P cubital tunnel release S/P tonsillectomy and adenoidectomy Family History Family History Mother Unknown family medical history Social History Social History Social History: the patient is and has 3 children. 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 The patient states that he is a nonsmoker. He rarely drinks. He denies any marijuana or other illicit drugs. His is the durable power securities attorney for healthcare. Code status full code. Smoking status: Never smoker Alcohol intake: never Drinks per week: 4 Substance use: never Substance use type: does not use Has the Lack of Transportation Kept You From Medical Appointments or From Getting Medications?: No Within the Past 12 Months, Were You Worried Whether Your Food Would Run Out Before You Got Money to Buy More?: Never True What is Your Housing Situation Today?: I Have Housing Are You Worried That in the Next 2 Months, You May Not Have Your Own Housing to Live In?: No Do You Have Trouble Paying Your Heating Or Electricity Bill?: No Do You Have Trouble Paying For Medicines?: No Are You Currently Unemployed and Looking for Work?: No Highest Level of Education Completed: High School Diploma/GED Do You Have Trouble With Childcare or the Care of a Family Member?: No Living arrangements: with family Spiritual care concerns: No Anes - Eval Final PreProcedure Day of Procedure 06/22/22 12:13 Patient weight: obese Heart: regular rate and rhythm Lungs: clear to auscultation Airway: Mallampati scale class III Neurological: alert and oriented Last oral intake: >/= 8 hours ASA classification: III Emergent: no Anesthetic plan: proceed Anesthesia type and monitoring: general ETT and standard monitoring Results Review: All pre-operative results and documents have been reviewed as part of the pre-operative evaluation. Informed Consent: The patient's anesthetic plan and its attendant risks and benefits were discussed with the patient/family/POA. Questions were solicited and answers provided to the satisfaction of the patient/family/POA.
[2022-06-22] MEDS: ACETAMINOPHEN 500 MG TABLET 1000 MG PO (13:00)
[2022-06-22] MEDS: KETOROLAC 15 MG/ML VIAL (*BKC) IV PUSH (13:00)
[2022-06-22] MEDS: LACTATED RINGERS 1,000 ML 30 ML IV CONT ×2 (13:07→15:20)
--- NOTE | 2022-06-22 13:18 | WPDHPUPDATE1 ---
History and Physical Update Update Date/Time: 06/22/22 13:18 History and Physical has been reviewed, including an updated exam of the patient. There are NO changes in the patient's condition. Risks, benefits, and alternatives have been discussed and questions answered. Patient agrees to proceed with procedure.
[2022-06-22] MEDS: ceFAZolin 2 GM/D5W 50 ML 2 GM/50 ML BAG IVPB (13:28)
--- NOTE | 2022-06-22 13:34 | W.PM.PROC2 ---
Procedure Note - Detailed Date of Procedure 06/22/22 Pre-op Diagnosis Cholecystitis with Cholelithiasis, choledocholithiasis Post-op Diagnosis Other (Choledocholithiasis with chronic cholecystitis, nodular liver) Procedure Performed Laparoscopic cholecystectomy Surgeon Lupillo Ward MD Day Care Supervisor Addis Currie MICRO LAB ANALYST Anesthesia General and Local (0.25% Marcaine with epinephrine) Indications Patient is a 46-year-old man who came to the emergency room on June 08 with jaundice and a bilirubin of 11.5. He was also having right upper quadrant pain. He was admitted and seen by Gastroenterology and General surgery. He was started on antibiotics. He underwent a successful ERCP on June 09, 2000. A large stone was removed and sphincterotomy was performed. Patient did well after the ERCP and wished to go home to come back for cholecystectomy. He has done well since discharge. Liver enzymes have continued to improve and are nearly normal. He is taken to surgery now for laparoscopic cholecystectomy. Findings Patient had severe chronic cholecystitis with adhesions to the gallbladder, thickened gallbladder wall, numerous stones. Also the patient had a very nodular firm liver, suspicious for early cirrhosis. [place]-Cut liver biopsy was performed. Due to the severe chronic inflammation and the nodular liver, the patient had 100 cc blood loss which is at least 5 times more than is typical for this operation. The procedure itself took 90 minutes which is about 3 times longer than usual. The cystic duct was quite dilated and had to be ligated with an endoloop. We had to place an extra 5 mm port to retract the liver as it was not only nodular but very firm and was somewhat wrapped around the gallbladder. The extra port was used to retract the liver so that we could expose and dissect more safely. Procedure was much more difficult than is usual. Description of Procedure Patient was taken to surgery and induced into general anesthesia. The abdomen was prepped and draped. Initial trocar was placed in the epigastrium using applied Medical optical trocar and local anesthetic. Once we were intraperitoneal, insufflation was carried out. The remaining trocars were placed under direct visualization. We then reviewed the right upper quadrant. The gallbladder itself was encased with omental adhesions. The gallbladder was very thickened and full of stones. It was difficult to grasp. Eventually a toothed tenaculum was used to grasp the fundus of the gallbladder and elevated. This allowed me to retract omental adhesions and take them down using a combination of cautery, blunt, and sharp dissection. Minimal bleeding occurred with this portion of the procedure. I continued taking adhesions off the gallbladder for at least 20 minutes. Eventually reached the infundibulum and triangle of Calot. These adhesions were much more tenacious. These were taken down slowly. At this point the extra 5 mm port was placed in the left mid abdomen. A laparoscopic Kittner retractor was placed there and this was used to retract the medial portion of the left lower lobe of the liver so low that the JANETTE function of the go gallbladder and liver could actually be seen in. From there, traction on the infundibulum was carried out and blunt and sharp dissection as well as cautery was used to dissect the cystic duct and cystic artery. These adhesions were tenacious and this was difficult. There was more bleeding associated with this than is usual. I also tried to dissect the gallbladder off the liver. This was also fairly bloody. Bleeding from the liver was similar to what 1 would see with cirrhosis. Eventually the cystic artery and cystic duct were dissected and the gallbladder was dissected from the liver at its lower 3rd. Critical view was achieved. I then divided the cystic artery after clipping it securely. I then further dissected the gallbladder from the liver. I dissected mo
[2022-06-22] MEDS: BUPIVACAINE/EPINEPHRINE 0.25% 50 ML VIAL 30 ML INFILTRATE (14:07)
[2022-06-22] MEDS: fentaNYL CITRATE INJ (*CRX) 100 MCG/2 ML VIAL 25 MCG IV PUSH ×4 (15:47→16:06)
== END 2022-06-22 17:39 | disposition home or self-care (01) ==
PROVIDERS: PCP Internal Medicine; Visit Provider Surgery
PROC: 0FT44ZZ Resection of Gallbladder, Percutaneous Endoscopic Approach (ICD-10-PCS; CPT 47562; principal; 2022-06-22 13:30)
DX: K80.10 Calculus of gallbladder with chronic cholecystitis without obstruction (principal); K75.81 Nonalcoholic steatohepatitis (NASH); K74.00 Hepatic fibrosis, unspecified; E03.9 Hypothyroidism, unspecified
CPT/HCPCS: 47562; 47379; 88304; 88305; 88312; 88313; A9270; C1713; J0330; J0690; J1100; J1170; J1885; J2250; J2405; J2704; J2710; J3010; J7120